=== PATIENT | female | born 1990 | race Caucasian/White ===

== ENCOUNTER 2016-10-15 10:03 | Emergency (ER) | payer BC ==
[2016-10-15 10:09] VITALS: RESP 16; O2SAT 97
[2016-10-15] MEDS ORDERED: IBUPROFEN 600 MG TAB PO ONE (11:14)
--- NOTE | 2016-10-15 11:39 | DX ---
Chest, PA and Lateral History: Cough x 2 weeks. Findings: There is mild bronchial wall thickening. Lung volumes are slightly prominent. There is no f ocal consolidation, infiltrate or effusion. Heart size is normal. There is no pneumothorax or pneumo mediastinum.>] Impression: Mild airways disease.
--- NOTE | 2016-10-15 13:28 | EDPHY ---
H & P Stated Complaint: Cough for 1 wk +SOB & Rib pain for injury Time Seen by Provider: 10/15/16 10:42 HPI/ROS: CHIEF COMPLAINT: Pain under right breast HISTORY OF PRESENT ILLNESS: This is a healthy 25-year-old who presents complaining of pain under the right breast. This pain is pleuritic. It began last night, with no preceding trauma. She feels mildly short of breath. She has had a cough/upper respiratory infection over the past week but it has been improving. She denies calf pain or swelling. No recent travel. She does not take hormone medications. No family history of VTE. REVIEW OF SYSTEMS: A ten point review of systems was performed and is negative with the exception of the items mentioned in the HPI. Source: Patient Exam Limitations: No limitations - Personal History LMP (Females 10-55): 1-7 Days Ago Current Tetanus/Diphtheria Vaccine: Yes Current Tetanus Diphtheria and Acellular Pertussis (TDAP): Yes - Medical/Surgical History Hx Asthma: No Hx Chronic Respiratory Disease: No Hx Diabetes: No Hx Cardiac Disease: No Hx Renal Disease: No Hx Cirrhosis: No Hx Alcoholism: No Hx HIV/AIDS: No Hx Splenectomy or Spleen Trauma: No Other PMH: depression - Social History Smoking Status: Never smoked Alcohol Use: Rarely Drug Use: None Additional Social History: She works as a [employer] mechanic. - Physical Exam Exam: General Appearance: Alert. Vital signs reviewed and normal. Eyes: Pupils equal and round, no conjunctival injection, no discharge. Anicteric. ENT, Mouth: Mucous membranes are moist, no oropharyngeal erythema or edema. Neck: No lymphadenopathy, supple. Respiratory: Lungs are clear to auscultation; no wheezes, rales, or rhonchi. Thorax: Nontender to palpation. No crepitus. Cardiovascular: Regular rate and rhythm; no murmur, rub, or gallop. Gastrointestinal: Abdomen is soft and nontender, no masses or organomegaly, bowel sounds normal. Skin: Warm and dry, no rashes on exposed skin, normal color. Back: Nontender to palpation over the thoracolumbar spine. No CVAT. Extremities: No lower extremity edema, no calf tenderness or swelling. Negative Homans. Neurological: Alert and oriented. Moving all four extremities easily and equally. Psychiatric: Normal affect. Constitutional: Initial Vital Signs Temperature (C) 36.8 C 10/15/16 10:07 Heart Rate 79 10/15/16 10:07 Respiratory Rate 16 10/15/16 10:07 Blood Pressure 115/74 10/15/16 10:07 O2 Sat (%) 97 10/15/16 10:07 O2 Delivery Mode Room Air Allergies/Adverse Reactions: No Known Allergies Allergy (Unverified 11/21/14 19:30) Home Medications: Medication Instructions Recorded Escitalopram Oxalate [Lexapro] 15 mg PO DAILY 11/21/14 Levothyroxine [Synthroid 100 mcg 100 mcg PO DAILY06 11/21/14 (RX)] Norethindrone [Jolivette] 1 mg PO DAILY 11/21/14 [place]-3 Fatty Acids [Fish Oil 1000 1,000 - 2,000 mg PO BIDMEAL 11/22/14 mg (OTC)] Medical Decision Making ED Course/Re-evaluation: Healthy 25-year-old with pleuritic right chest pain, located under the right breast. Emergency department evaluation included a normal chest x-ray (no infiltrate, no rib fracture, no pneumothorax) and a normal D-dimer. I feel that a normal D-dimer in this low risk patient is sufficient to preclude any further evaluation for pulmonary embolus. She does not have signs or symptoms of DVT. She has had a recent cough and this could be pleurisy or costochondritis. The pain is not left-sided and pericarditis is unlikely. I do not suspect a cardiac etiology. She does not have upper abdominal pain and I do not think that this is originating from her gallbladder. She is not tachypneic, tachycardic, or hypoxic. She is not ill-appearing. I am recommending symptomatic treatment with NSAIDs. She is being referred to a primary care provider, as she does not have one. - Data Points Medications Given: Discontinued Medications Ibuprofen (Motrin) 600 mg PO EDNOW ONE Stop: 10/15/16 11:15 Last Admin: 10/15/16 11:29 Dose: 600 mg Departure - Departure Disposition: Home, Routine, Self-Care Clinical Impression: Costochondral chest pain Condition: Good Instructions: Costochondritis (ED) Additional Instructions: Take ibuprofen, 600 mg every 6-8 hours. Take this with food. I am referring you to Dr. Champ Bragg for primary care as needed. Referrals: Champ Bragg MD [Medical Doctor] - As per Instructions
[2016-10-15 13:39] VITALS: BP 126/70; PULSE 73; TEMP 98.6
== END 2016-10-15 13:38 | disposition home or self-care (01) ==
DX: R07.1 Chest pain on breathing (principal)